=== PATIENT | male | born 1935 | race Caucasian/White ===

== ENCOUNTER 2017-03-20 17:22 | Observation (INO) | payer MEDICARE, OTHER ==
[~2017-03-20] VITALS: Ht 172.7 cm; Wt 75.6 kg
[~2017-03-20 17:22] MED LIST: CALC-6 PO; DOCU-168 PO; DONE10TA30 PO; ESCI5TAB PO; LIDO700A3 TOP; MAGN400O4 PO; MEMA10TA12 PO; MULT-795 PO; NAPR220C11 PO; VERA-8 PO; WARF3TAB27 PO; WARF4TAB33 PO
--- OUTSIDE RECORDS SUMMARY | 2017-03-20 17:31 | XMS REPORT | Referral Summary ---
Author Author [facility] Organization [facility] Address Unknown Phone Unavailable Care Team Providers Care Critical Systems Technician Name Role Phone Janet Stevenson Primary Care Physician [phone] Encounter Date(s): 01/02/17 - 01/02/17 [facility] [address] [id number] Discharge Diagnosis: Presence of permanent cardiac pacemaker Discharge Diagnosis: Severe aortic stenosis Discharge Diagnosis: Atrial fibrillation Discharge Disposition: 01-Home or Self Care Attending Physician: Miladis Fontenot APRN, NP-C Admitting Physician: Miladis Fontenot APRN, NP-C Vital Signs Most recent to 1 oldest [Reference Range]: Peripheral Pulse 84 bpm Rate [60-100 bpm] (01/02/17 1:51 PM) Blood Pressure 110/70 mmHg [90-140/60-90 mmHg] (01/02/17 1:51 PM) Problem List Condition Effective Dates Status Health Status Informant Alzheimer's Active disease(Confirmed) Anticoagulant Active long-term use(Confirmed) Bipolar 1 Active disorder(Confirmed) Cancer, benign lilia Active major salivary gland(Confirmed) Presence of Active permanent cardiac pacemaker(Confirmed) OBS suspected Active cardiovascular disease(Confirmed) CHF (congestive Active heart failure)(Confirmed) Atrial fibrillation Active (disorder)(Confirmed ) Dementia(Confirmed) Active Depression(Confirmed Active ) Dizziness(Confirmed) Active Dyslipidemia(Confirm Active ed) ED (erectile Active dysfunction)(Confirm ed) Elevated Active PSA(Confirmed) Giddiness(Confirmed) Active Hearing Active loss(Confirmed) Hyperlipidemia(Confi Active rmed) Hypertension(Confirm Active ed) Hypothyroidism(Confi Active rmed) Injury of chest Active wall(Confirmed) Irregular heart Active rhythm(Confirmed) Lumbago(Confirmed) Active Memory Active loss(Confirmed) OA Active (osteoarthritis)(Con firmed) Orthostatic Active hypotension(Confirme d) Osteoporosis(Confirm Active ed) Personal history of Resolved prostate cancer(Confirmed) Prostate 01/2007 Active cancer(Confirmed) Sinoatrial node Active dysfunction(Confirme d) Sleep Active apnea(Confirmed) Syncope and Active collapse(Confirmed) Acute Venous Active Embolism; Thrombosis(Confirmed ) right ureteral Active orifice bladder tumor(Confirmed) Type 2 diabetes Active mellitus(Confirmed) Allergies, Adverse Reactions, Alerts No Known Medication Allergies Medications Centrum Silver 1 tabs, Oral, Daily, 0 Refill(s) Start Date: 06/21/14 Status: Ordered donepezil 10 mg oral tablet See Instructions, TAKE TWO TABLETS BY MOUTH EVERY NIGHT AT BEDTIME, # 60 tabs, 1 Refill(s), eRx: [facility] #[id number], TAKE TWO TABLETS BY MOUTH EVERY NIGHT AT BEDTIME Start Date: 09/21/14 Status: Ordered levothyroxine 25 mcg, Oral, Daily, 0 Refill(s) Start Date: 06/21/14 Status: Ordered Lipitor 20 mg oral tablet 1 tabs, Oral, Bedtime (once a day), 0 Refill(s) Start Date: 07/20/14 Status: Ordered Namenda 10 mg oral tablet 2 tabs, Oral, Daily, # 30 tabs, 0 Refill(s) Start Date: 06/21/14 Status: Ordered Oyst-Abiodun-D 1 tabs, Oral, Daily, 0 Refill(s) Start Date: 07/20/14 Status: Ordered verapamil 180 mg/12 hours oral tablet, extended release See Instructions, TAKE ONE TABLET BY MOUTH EVERY DAY, # 90 unknown unit, 2 Refill(s), eRx: [facility] #[id number], TAKE ONE TABLET BY MOUTH EVERY DAY Start Date: 06/02/14 Status: Ordered warfarin 3 mg oral tablet See Instructions, TAKE ONE TABLET BY MOUTH EVERY DAY, # 30 tabs, eRx: [facility] #[id number], TAKE ONE TABLET BY MOUTH EVERY DAY Start Date: 11/22/14 Status: Ordered Results No data available for this section Immunizations Given and Recorded Vaccine Date Status Refusal Reason pneumococcal 23-polyvalent vaccine 07/07/03 Recorded tetanus-diphth toxoids (Td) adult/adol 07/07/03 Given Procedures Procedure Date Related Diagnosis Body Site Colonoscopy1 03/12/11 RT MF Tendon Sheath Decompression 3/29/11 Colonoscopy 2007 Pacemaker care 2007 Cystoscopy and transrectal prostate needle bx 12/30/06 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 Repeat in 3 years. Social History Social History Type Response Smoking Status Never smoker Assessment and Plan Extracted from: Title: Office Visit Note Author: Miladis Fontenot APRN, FELLER OPERATOR-C Date: 01/02/17 Assessment/Plan 1.Severe aortic stenosis They still wish to proceed with conservative management and will consider consult to valve clinic Signs/symptoms of ASdiscussed and likely cause of hisgradual functional decline and to report any changes Avoid dehydration 2.Atrial fibrillation Chronic Warfarin, rate controlled 3.Presence of permanent cardiac pacemaker Stable device check, no changes F/U with Dr. Hernandez 8 months Referrals to Other Providers Referred by: Miladis Fontenot APRN, FELLER OPERATOR-C
--- OUTSIDE RECORDS SUMMARY | 2017-03-20 17:31 | XMS REPORT | Continuity of Care Document ---
Author Author [facility] Organization [facility] Address Unknown Phone Unavailable Allergies Active Description Code Type Severity Reaction Onset Reported/Identified Relationship to Patient Clinical Status Yes No Known Medication Allergies NKMA N/A N/A 07/20/2014 Medications Medication Packaging Start Date Stop Date Route Dosage Sig LIDOCAINE 1% MPF INJ (5ML) VL 01/05/2016 01/04/2017 ID ASDIR methylPREDNISolone ACETATE 80MG/1ML INJ VL 01/05/20162016 IT ASDIR fentaNYL 100 MCG/2ML INJ AMP 01/05/2016 01/04/2017 IV ASDIR BUPIVACAINE 0.25% INJ [10 ML] VL 01/05/2016 01/04/2017 IT ASDIR LACTATED RINGERS 1000 ML IV SOLN BAG 09/11/2016 09/11/2016 IV PRE-OP MIDAZOLAM 2MG/2ML INJ VL 09/11/2016 09/11/2016 IV PRE-OP fentaNYL 100 MCG/2ML INJ AMP 09/11/2016 09/11/2016 IV PRE-OP ceFAZolin 1GM VIAL VL 09/11/2016 09/11/2016 IV PRE-OP SODIUM CHLORIDE PF 0.9% 10ML INJ VL 09/11/2016 09/11/2016 IVP ONCE LACTATED RINGERS 1000 ML IV SOLN BAG 09/11/2016 09/11/2016 IV ONCE SODIUM CHLORIDE 0.9% 1000ML IRRIG SOLN EA 09/11/20162015 IRR ONCE ceFAZolin 1GM VIAL VL 09/11/2016 09/11/2016 IVP ONCE BUPIVACAINE W/ EPI 0.25% INJ [10 ML] VL 09/11/2016 09/11/2016 ID ONCE SODIUM CHLORIDE 0.9% 10ML FLUSH SYRINGE SYR 09/11/20162016 IVP BID&0900,2100 LIDOCAINE 5% PATCH PAT 09/11/2016 09/11/2017 TD Q12H&0900, 2100 POLYETHYLENE GLYCOL 17GM PKT PKT 09/11/2016 09/11/2017 PO QD& 0900 DOCUSATE SODIUM 100MG CAPSULE CAP 09/11/2016 09/11/2017 PO BID& 0900,2100 * Ready to Reconcile EA 09/11/2016 09/11/2016 PO ASDIR fentaNYL 250 MCG/5ML INJ AMP 09/11/2016 09/11/2016 IV ONCE LIDOCAINE 2% SYRINGE [100MG/5ML] SYR 09/11/2016 09/11/2016 IVP ONCE DEXAMETHASONE 10MG/1ML VIAL VL 09/11/2016 09/11/2016 IVP ONCE PROPOFOL 200MG/20ML INJ VL 09/11/2016 09/11/2016 IVP ONCE ONDANSETRON 4MG/2ML INJ VL 09/11/2016 09/11/2016 IVP ONCE ROCURONIUM 50MG/5ML INJ VL 09/11/2016 09/11/2016 IVP ONCE PHENYLEPHRINE 1MG/10ML SYRINGE [COMPOUND] DOS 09/11/201609/11 IVP ONCE MORPHINE 4MG/1ML SYRINGE ML 09/11/2016 09/11/2017 IVP [id number] SODIUM CHLORIDE 0.9% W/ KCL 20MEQ 1000ML IV SOLN BAG 09/11/2016 09/11/2017 IV 100ML/HR LORazepam 0.5MG TABLET TAB 09/11/2016 09/11/2017 PO Q4HPRN FAMOTIDINE 20 MG TABLET TAB 09/11/2016 09/11/2017 PO BIDPRNN CYCLOBENZAPRINE 10 MG TABLET TAB 09/11/2016 09/11/2017 PO [id number] PHENOL 1.4% THROAT SPRAY [118ML] EA 09/11/2016 09/11/2017 PO PRN MAGNESIUM HYDROXIDE 2400MG/30ML SUSP EA 09/11/2016 09/11/2017 PO PRN MORPHINE 2 MG/1ML SYRINGE ML 09/11/2016 09/11/2017 IVP [id number] MORPHINE 4MG/1ML SYRINGE ML 09/11/2016 09/11/2017 IVP [id number] BISACODYL 10MG SUPPOS. SUP 09/11/2016 09/11/2017 AL* PRN TEMAZEPAM 15MG CAPSULE CAP 09/11/2016 09/11/2017 PO HSPRNI& 2200 diphenhydrAMINE 50MG/1ML INJ VL 09/11/2016 09/11/2017 IVP Q6HPRN BISACODYL 5MG TABLET TAB 09/11/2016 09/11/2017 PO PRN ACETAMINOPHEN 325MG TABLET TAB 09/11/2016 09/11/2017 PO Q4HPRN METOCLOPRAMIDE 10MG/2ML INJ VL 09/11/2016 09/11/2017 IVP [id number] SODIUM CHLORIDE 0.9% 10ML FLUSH SYRINGE SYR 09/11/20162016 IVP PRN SODIUM CHLORIDE 0.9% 5ML FLUSH SYRINGE SYR 09/11/20162016 IVP PRN CEPACOL (BENZOCAINE/MENTHOL) JAQUIZENZENON SAMANTHA 09/11/2016 09/11/2017 BC Q4HPRN ePHEDrine 20MG/2ML SYRINGE (COMPOUNDED) DOS 09/11/20162015 IVP ONCE ePHEDrine 20MG/2ML SYRINGE (COMPOUNDED) DOS 09/11/20162015 IVP ONCE ACETAMINOPHEN IV 1GM/100ML VL 09/11/2016 09/12/2016 PB Q6H&0000 ,0600,1200,1800 *VERAPAMIL ER 120MG TABLET 09/11/2016 09/11/2017 PO QD&0900 *DONEPEZIL 10 MG TABLET TAB 09/11/2016 09/11/2017 PO HS&2200 *MEMANTINE 10MG TABLET TAB 09/11/2016 09/11/2017 PO QD&0900 *LEVOTHYROXINE 50MCG TABLET TAB 09/11/2016 09/11/2017 PO QD& 0900 *ESCITALOPRAM 10MG TABLET TAB 09/11/2016 09/11/2017 PO PRN ceFAZolin 1GM VIAL VL 09/11/2016 09/12/2016 IVP Q8H&1800,0200, 1000 METOCLOPRAMIDE 10MG TABLET TAB 09/11/2016 09/12/2016 PO Q6H3& 0300,0900,1500,2100 ceFAZolin 1GM VIAL VL 09/11/2016 09/11/2016 IVP Q8H&0000,0800, 1600 traMADol 50 MG TABLET TAB 09/11/2016 09/11/2016 PO Q4-6HPRN traMADol 50 MG TABLET TAB 09/11/2016 09/11/2017 PO Q4-6HPRNP METOCLOPRAMIDE 10MG TABLET TAB 09/12/2016 09/12/2017 PO [id number] *MEMANTINE 20MG TABLET 10/06/2016 10/06/2017 PO QD&0900 *LEVOTHYROXINE 50MCG TABLET TAB 10/06/2016 09/11/2016 PO QD& 0900 *ESCITALOPRAM 5MG TABLET 10/06/2016 10/06/2017 PO PRN *WARFARIN 3MG TABLET TAB 10/06/2016 10/06/2017 PO QPM&1700 *DONEPEZIL 10 MG TABLET TAB 10/06/2016 09/11/2016 PO HS&2200 *WARFARIN 4MG TABLET TAB 10/06/2016 10/06/2017 PO QPM&1700 * DONT RECONCILE--CHANGE PENDING EA 10/06/2016 10/06/2017 PO PRN *VERAPAMIL ER 120MG TABLET 10/12/2016 09/11/2016 PO QD&0900 *MEMANTINE 10MG TABLET TAB 10/12/2016 09/11/2016 PO QD&0900 *ESCITALOPRAM 10MG TABLET TAB 10/12/2016 09/11/2016 PO PRN Problems Date Dx Coded Attending Type Code Diagnosis Diagnosed By 01/05/2016 CHEYENNE RIBEIRO DF 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 01/05/2016 CHEYENNE RIBEIRO DF Z7901 senior living (current) use 09/12/2016 BURAK DAWSON E03.9 Hypothyroidism, unspecified 09/12/2016 BURAK DAWSON DF F03.90 Unspecified dementia without behavioral 09/12/2016 BURAK DAWSON DF F41.8 Other specified anxiety disorders 09/12/2016 BURAK DAWSON G47.30 Sleep apnea, unspecified 09/12/2016 BURAK DAWSON I10 Essential (primary) hypertension 09/12/2016 BURAK DAWSON M48.06 Spinal stenosis, lumbar region 09/12/2016 BURAK DAWSON M51.36 Other intervertebral disc degeneration, 09/12/2016 BURAK DAWSON M51.86 Other intervertebral disc disorders, lum 09/12/2016 BURAK DAWSON DF Z79.01 senior living (current) use of anticoagulant 09/12/2016 BURAK DAWSON DF Z95.0 Presence of cardiac pacemaker Procedures Code Description Performed By Performed On [id number] Release Lumbar Nerve, Open Approach BURAK DAWSON 09/11/2016 [id number] Excision of Lumbar Vertebral Disc, BURAK Ortiz 09/11/2016 Results Test Result Range Hemoglobin [Mass/volume] in Blood - 09/12/16 04:35 Hemoglobin [Mass/volume] in Blood 14.0 g/dl 13.5 - 17.0 Hematocrit [Volume Fraction] of Blood by Automated count - 09/12/16 04:35 Hematocrit [Volume Fraction] of Blood by Automated count 38.7 % 40.0 - 51.0 Comprehensive metabolic 2000 panel - Serum or Plasma - 09/12/16 04:35 Glucose [Mass/volume] in Serum or Plasma 133 mg/dl 64 - 112 Urea nitrogen [Mass/volume] in Serum or Plasma 16.1 mg/dl 8.4 - 25.8 Creatinine [Mass/volume] in Serum or Plasma 1.0 mg/dl 0.7 - 1.2 Urea/Creatinine [Mass Ratio] in Serum or Plasma 16.1 6 - 26 Calcium [Mass/volume] in Serum or Plasma 8.60 mg/dl 8.30 - 10.60 Sodium [Moles/volume] in Serum or Plasma 136 mmol/L 135 - 151 Potassium [Moles/volume] in Serum or Plasma 4.7 mmol/L 3.5 - 5.0 Chloride [Moles/volume] in Serum or Plasma 103 mmol/L 98 - 113 Protein [Mass/volume] in Serum or Plasma 5.6 gm/dl 6.2 - 8.0 Albumin [Mass/volume] in Serum or Plasma 3.7 gm/dl 3.5 - 5.2 Globulin [Mass/volume] in Serum 1.9 gm/dl 2-4 Albumin/Globulin [Mass Ratio] in Serum or Plasma 1.9 1.1-2.4 Alanine aminotransferase [Enzymatic activity/volume] in Serum or Plasma 21 U/L 0 - 55 Alkaline phosphatase [Enzymatic activity/volume] in Serum or Plasma 70 U/L 53 - 128 Bilirubin.total [Mass/volume] in Serum or Plasma 0.74 mg/dl 0.10 - 1.20 Carbon dioxide, total [Moles/volume] in Venous blood 23 mmol /L 23 - 34 Magnesium [Mass/volume] in Serum or Plasma - 09/12/16 04:35 Magnesium [Mass/volume] in Serum or Plasma 1.8 mg/dl 1.8 - 2.6 Encounters ACCT No. Visit Date/Time Discharge Status Pt. Type Provider Facility Loc./Unit Complaint [id number] 01/19/2014 14:07:00 01/19/2014 23 :59:59 [facility] Outpatient [id number] 11/03/2013 15:53:00 11/03/2013 23 :59:59 [facility] Outpatient
--- OUTSIDE RECORDS SUMMARY | 2017-03-20 17:31 | XMS REPORT | Continuity of Care Document ---
Author Author [facility] Organization [facility] Address Unknown Phone Unavailable Support Name Relationship Address Phone SREEKANTH BRADLEY MD Caregiver [address] [place] [address] Unavailable SREEKANTH BRADLEY MD Caregiver [address] [place] [address] Unavailable ANALILIA PASTOR DO Caregiver [address] [place] [address] Unavailable MICHELLE BARTLETT Next Of Kin [address] [place] [address] Insurance Providers Guarantor Keisha Bartlett Address [address] [place] [address] Email DENIED NO TO PT [facility] Policy Number [id number] Subscriber's Name Keisha Bartlett Relationship 18 Self Group Number PLANC Effective Date 00 Payer Medicare Policy Number [id number] Subscriber's Name Keisha Bartlett Relationship 18 Self Advance Directives Directive Response Recorded Date/Time Ordered Resuscitation Status Full Code 09/19/16 4:26pm Resuscitation Documents on File No 09/18/16 4:37pm DPOA for Healthcare Only Y Michelle Elvin () 09/19/16 2:12am Living Will Yes 09/18/16 4:37pm Problems Active Problems Medical Problem Onset Date Status Altered mental status, unspecified Unknown Acute Alzheimer's dementia Unknown Chronic Anticoagulation adequate with anticoagulant therapy Unknown Chronic At high risk for falls Unknown Acute Atrial fibrillation Unknown Chronic Constipation due to opioid therapy Unknown Acute Depression Unknown Chronic Hypoxemia Unknown Acute Intractable back pain Unknown Acute Neurogenic bladder Unknown Spinal stenosis of lumbar region Unknown Chronic Systolic murmur of aorta Unknown Acute Urinary retention Unknown Acute weakness Unknown Acute Surgical Problem Onset Date Status S/P laminectomy Unknown Acute Status post biventricular pacemaker Unknown Chronic Medications Current Home Medications Medication Dose Units Route Directions Days Qty Instructions Start Date Calcium Carbonate/Vitamin D3 (Os-Abiodun 500+D Tablet) 1 Tab Tablet 1 Tab Oral Daily 03/31/10 Docusate Sodium (Colace) 100 Mg Capsule 100 Mg Oral Daily 14 Days 14 Capsule 09/18/16 Donepezil Hcl 10 Mg Tablet 10 Mg Oral Bedtime 09/20/15 Escitalopram Oxalate (Lexapro) 5 Mg Tablet 5 Mg Oral Daily as needed for Prn Orders 09/20/15 Lidocaine (Lidoderm) 1 Each Adh..patch 2 Patch Topically Daily 14 Days 09/18/16 Magnesium Hydroxide (Milk Of Magnesia) 400 Mg/5 Ml Oral.susp 30 Ml Oral Daily as needed for Constipation 21 Days 09/18/16 Memantine Hcl (Namenda) 10 Mg Tablet 20 Mg Oral Daily 09/20/15 Multivitamins W-Minerals/Lut (Centrum Silver Tablet) 1 Tab Tablet 1 Tab Oral Daily 03/31/10 Naproxen Sodium (Aleve) 220 Mg Capsule 220 Mg Oral Daily as needed for Arthritis 30 Days 30 Capsule 09/18/16 Verapamil Hcl (Verapamil Er) 120 Mg Tablet.er 120 Mg Oral Daily 09/13/16 Warfarin Sodium 3 Mg Tablet 3 Mg Oral 5 Times A Week SUN,MON,TUE,ELISEO ,SAT 02/04/13 Warfarin Sodium (Coumadin) 4 Mg Tablet 4 Mg Oral Twice A Week WED, Sat03/30/10 Past Home Medications Medication Directions Ordered Status Acetaminophen (Tylenol 8 Hour) 650 Mg Tablet.sa, 650 Mg Oral As Needed Discontinued Atorvastatin Calcium (Lipitor) 10 Mg Tablet, 20 Mg Oral Daily 03/31/10 Discontinued B 12 , 400 Mcg Daily 12/13/08 Discontinued Calcium Carbonate (Os-Abiodun 500) 1 Tab Tablet, 1 Tab Oral Daily 03/31/10 Discontinued Calcium/Vit B12/Fa/Pyridoxine (Folic Acid/B-6/B-12 Tablet) 1 Tab Tablet, 1 Tab Oral Daily 12/13/08 Discontinued Citalopram Hydrobromide (Celexa) 10 Mg Tablet, 60 Mg Oral Daily 03/12/11 Discontinued Citalopram Hydrobromide (Citalopram) 10 Mg/5 Ml Solution, 10 Mg Oral Daily Discontinued Donepezil Hcl (Aricept) 10 Mg Tablet, 10 Mg Oral Daily 03/31/10 Discontinued Duloxetine Hcl (Cymbalta) 60 Mg Capsule.dr, 60 Mg Oral Daily 03/31/10 Discontinued Flecainide Acetate 50 Mg Tablet, 50 Mg Oral Twice A Day 03/09/11 Discontinued Guaifenesin (Mucinex) 600 Mg Tablet.sa, 600 Mg Oral As Needed 03/31/10 Discontinued Lovenox , Injection Daily 03/31/10 Discontinued Memantine Hcl (Namenda) 10 Mg Tablet, 20 Mg Oral Daily 03/31/10 Discontinued Montelukast Sodium (Singulair) 10 Mg Tablet, 10 Mg Oral Bedtime 11/02/10 Discontinued Namenda Xl , 28 Mg Oral Daily 12/08/13 Discontinued Naproxen Sodium (Aleve) 220 Mg Capsule, 220 Mg Oral Daily as needed for Pain/ Air Hunger 09/21/15 Discontinued Tolterodine Tartrate (Detrol) 2 Mg Tablet, 4 Mg Oral Weekly 03/31/10 Discontinued Verapamil Hcl 180 Mg Tablet.sa, 180 Mg Oral Daily 03/31/10 Discontinued Social History Social History Problem Response Recorded Date/Time Onset Date Status Reason for Hospitalization Lumbar laminectormy, weakness 09/27/2016 10:39am Not Applicable Not Applicable Hx Substance Use No 09/13/2016 11:22am Not Applicable Not Applicable Hx Alcohol Use Y OCC 09/13/2016 11:22am Not Applicable Not Applicable Has the pt used tobacco in the last 12 months No 09/18/2016 4:41pm Not Applicable Not Applicable Query Response Start Date Stop Date Smoking Status Never smoker Hospital Discharge Instructions Instructions: Care Instructions: Reason for Hospitalization: Lumbar laminectormy, weakness I was in the hospital because (patient own words): "I fell and couldn't get up. " Discharge Diet: Regular Discharge Activity: as tolerated Follow Up Appointments: Dr. Anastacio Pastor on 10/08/16 at 1:45 pm for Hosp. follow-up. [address] [place], [place] [address] . Pending Lab / Results: No Pending Lab Wound/Incision Care: dry dressing as needed Pain Management/Treatment: Lidocaine patch, tylenol prn Expected Signs/Symptoms: Pain, swelling at surgical site Notify Physician If: fever, severely worsening pain During Business Hours:: Please call the physician's office at office After Business Hours:: Please call [phone] and have the sticker machine operator page the physician. Condition at time of discharge: Good Plan of Care Discharge Date 09/27/16 3:20pm Disposition 30 STILL A PATIENT Instructions/Education Provided Spinal Stenosis Prescriptions See Medication Section Care Plan and Goals See Discharge Instructions Section Functional Status Query Response Date Recorded Mobility Status Ambulatory w/assist September 27, 2016 10:39am Assistive Devices Front Wheeled Walker September 27, 2016 10:39am Activity Limitations Weakness Pain September 27, 2016 10:39am Feeding Ability Independent September 27, 2016 10:39am Toileting Ability Assist September 27, 2016 10:39am Grooming Ability Assist September 27, 2016 10:39am Dressing Ability Assist September 27, 2016 10:39am Driving Ability Dependent September 27, 2016 10:39am Housework Ability Dependent September 27, 2016 10:39am Meal Preparation Ability Dependent September 27, 2016 10:39am Stair Climbing Ability Dependent September 27, 2016 10:39am Ability to complete ADL's impeded by Impaired Mobility September 27, 2016 10:39am Cognitive/Perceptual Impairments Impaired vision Impaired hearing September 27, 2016 10:39am Visual Assistive Devices Glasses With patient September 24, 2016 4:22pm Hearing Assistive Devices Right hearing aid With patient September 24, 2016 4:22pm Preferred Method of Learning Demonstration Listening Hands on September 24, 2016 4:22pm Allergies, Adverse Reactions, Alerts Allergen Type Severity Reaction Status Last Updated No Known Drug Allergies Allergy Unknown Active 09/21/15 Immunizations Immunization Event Date Type Not Given Reason Dose Number Lot Number Cloth Layer VIS Given Influenza, high dose seasonal 09/14/16 Administered 1 [id number] San[employer]i Pasteur 09/14/16 Query Response on File Recorded Date/Time Hx Influenza Vaccination Y January 2016 09/18/16 4:41pm Hx Pneumococcal Vaccination No 09/18/16 4:41pm Hx Influenza Vaccination Y January 2016 09/18/16 4:41pm Influenza Vaccine Hx January 2016 09/18/16 4:50pm Vital Signs Acute Vital Signs Vital Response Date/Time Temperature (Fahrenheit) 96.6 deg F (96.8 - 99.1) 09/27/2016 7:30am Temperature (Calculated Celsius) 35.96050 degrees C (36.0 - 37.3) 09/27/2016 7:30am Pulse Rate (adult) 85 bpm (60 - 100) 09/27/2016 9:48am Respiratory Rate 18 breaths/min (10 - 20) 09/27/2016 9:48am O2 Sat by Pulse Oximetry 94 % (90 - 100) 09/27/2016 7:30am Oxygen Delivery Method Nasal Cannula 09/14/2016 6:51pm Oxygen Delivery Method Room Air 09/27/2016 7:30am Oxygen Flow Rate 1.00 L/min 09/14/2016 6:51pm Blood Pressure 143/98 mm Hg 09/27/2016 7:30am Blood Pressure Source Automatic Cuff 09/27/2016 7:30am Height (Feet) 5 feet 09/26/2016 1:46pm Height (Inches) 8.00 inches 09/26/2016 1:46pm Weight (Kilograms) 84.000 kg 09/18/2016 4:35pm Body Mass Index (BMI) 28.2 09/18/2016 4:35pm Results Laboratory Results Test Name Result Units Flags Reference Collection Date/Time Result Date/ Time Comments Activated Partial Thromboplast Time 37.0 SEC H 24-36 08/28/2016 12:22pm 08/28/2016 12:37pm Neutrophils % (Manual) 70.0 % H 33-66 09/13/2016 12:44pm 09/13/2016 1: 14pm Band Neutrophils % 4.0 % 0-6 09/13/2016 12:44pm 09/13/2016 1:14pm Lymphocytes % (Manual) 13.0 % L 23-45 09/13/2016 12:44pm 09/13/2016 1: 14pm Monocytes % (Manual) 12.0 % H 0-9.0 09/13/2016 12:44pm 09/13/2016 1: 14pm Eosinophils % (Manual) 1.0 % 0-4 09/13/2016 12:44pm 09/13/2016 1:14pm Band Neutrophils # 0.6 T/MM3 09/13/2016 12:44pm 09/13/2016 1:14pm Absolute Neutrophils (Manual) 10.7 T/MM3 H 1.8-7.7 09/13/2016 12:44pm 1:14pm Lymphocytes # (Manual) 2.0 T/MM3 1-4.8 09/13/2016 12:44pm 09/13/2016 1: 14pm Monocytes # (Manual) 1.8 T/MM3 H 0-0.8 09/13/2016 12:44pm 09/13/2016 1: 14pm Eosinophils # (Manual) 0.2 T/MM3 0-0.5 09/13/2016 12:44pm 09/13/2016 1: 14pm Red Cell Morphology Comment ABNORMAL 09/13/2016 12:44pm 09/13/2016 1:14pm Anisocytosis 1+ 09/13/2016 12:44pm 09/13/2016 1:14pm Poikilocytosis 1+ 09/13/2016 12:44pm 09/13/2016 1:14pm Total Bilirubin 1.30 MG/DL 0.20-1.30 09/15/2016 4:40am 09/15/2016 5: 32am Alkaline Phosphatase 66 U/L 38-126 09/15/2016 4:40am 09/15/2016 5:32am Total Protein 5.7 G/DL L 6.3-8.2 09/15/2016 4:40am 09/15/2016 5:32am Albumin 3.2 G/DL L 3.5-5.0 09/15/2016 4:40am 09/15/2016 5:32am Globulin 2.5 G/DL 2.4-3.6 09/15/2016 4:40am 09/15/2016 5:32am Albumin/Globulin Ratio 1.3 RATIO 1.1-2.2 09/15/2016 4:40am 09/15/2016 5 :32am Aspartate Amino Transf (AST/SGOT) 27 U/L 17-59 09/15/2016 4:40am 2015 5:32am Alanine Aminotransferase (ALT/SGPT) 28 U/L 21-72 09/15/2016 4:40am 5:32am Magnesium Level 2.1 MG/DL 1.6-2.3 09/15/2016 4:40am 09/15/2016 5:32am Urinalysis Comment MICROSCOPIC NOT IND. 09/13/2016 5:14pm 2015 6:05pm White Blood Count 8.3 T/MM3 4.5-11.0 09/19/2016 7:14am 09/19/2016 7: 26am Red Blood Count 3.57 M/MM3 L 4.50-5.90 09/19/2016 7:14am 09/19/2016 7: 26am Hemoglobin 12.2 GM/DL D L 13.5-17.5 09/19/2016 7:14am 09/19/2016 7:26am Hematocrit 35.2 % D L 41-53 09/19/2016 7:14am 09/19/2016 7:26am Mean Corpuscular Volume 98.6 UM3 80-100 09/19/2016 7:14am 09/19/2016 7: 26am Mean Corpuscular Hemoglobin 34.2 UUG H 26-34 09/19/2016 7:14am 2015 7:26am Mean Corpuscular Hemoglobin Concent 34.7 GM/DL 31-37 09/19/2016 7:14am 09/19/2016 7:26am RDW Standard Deviation 52.1 FL H 36.9-50.2 09/19/2016 7:14am 09/19/2016 7:26am Platelet Count 153 T/MM3 130-400 09/19/2016 7:14am 09/19/2016 7:26am Mean Platelet Volume 10.5 UM3 9.4-12.4 09/19/2016 7:14am 09/19/2016 7: 26am Neutrophils (%) (Auto) 73.1 % H 33-66 09/19/2016 7:14am 09/19/2016 7: 26am Lymphocytes (%) (Auto) 11.4 % L 23-45 09/19/2016 7:14am 09/19/2016 7: 26am Monocytes (%) (Auto) 12.5 % H 0-9.0 09/19/2016 7:14am 09/19/2016 7:26am Eosinophils (%) (Auto) 1.4 % 0-4 09/19/2016 7:14am 09/19/2016 7:26am Basophils (%) (Auto) 0.4 % 0-2 09/19/2016 7:14am 09/19/2016 7:26am Immature Granulocyte % (Auto) 1.2 % H 0.0-0.5 09/19/2016 7:14am 2015 7:26am Absolute Neutrophils (auto) 6.1 T/MM3 1.8-7.7 09/19/2016 7:14am 2015 7:26am Absolute Lymphocytes (auto) 1.0 T/MM3 1-4.8 09/19/2016 7:14am 2015 7:26am Absolute Monocytes (auto) 1.0 T/MM3 H 0-0.8 09/19/2016 7:14am 2015 7:26am Absolute Eosinophils (auto) 0.1 T/MM3 0-0.5 09/19/2016 7:14am 2015 7:26am Absolute Basophils (auto) 0.0 T/MM3 0-0.2 09/19/2016 7:14am 09/19/2016 7:26am Absolute Immature Granulocyte (auto 0.10 T/MM3 H 0.00-0.03 09/19/2016 7: 14am 09/19/2016 7:26am Prothromb Time International Ratio 2.12 H 0.99-1.21 09/27/2016 4:39am 09/27/2016 5:04am THERAPUTIC RANGE=2.00-3.00 FOR ANTI-THROMBOSIS THERAPUTIC RANGE=2.50-3.50 FOR IMPLANTED VALVE Icterus Index < 2 0-7 09/19/2016 7:14am 09/19/2016 7:30am Chemistry Specimen Hemolysis < 15 0-25 09/19/2016 7:14am 09/19/2016 7 :30am 0-25: Specimen Exhibited No Hemolysis. Turbidity < 20 0-20 09/19/2016 7:14am 09/19/2016 7:30am Sodium Level 141 MEQ/L 134-144 09/19/2016 7:14am 09/19/2016 7:30am Potassium Level 4.1 MEQ/L 3.6-5 09/19/2016 7:14am 09/19/2016 7:30am Chloride Level 107 MEQ/L 98-107 09/19/2016 7:14am 09/19/2016 7:30am Carbon Dioxide Level 25 MEQ/L 22-30 09/19/2016 7:14am 09/19/2016 7: 30am Anion Gap 9 MEQ/L 5-15 09/19/2016 7:14am 09/19/2016 7:30am Blood Urea Nitrogen 9.0 MG/DL 9-09/19/2016 7:14am 09/19/2016 7:30am Creatinine 0.7 MG/DL L 0.8-1.5 09/19/2016 7:14am 09/19/2016 7:30am BUN/Creatinine Ratio 13 RATIO 6-26 09/19/2016 7:14am 09/19/2016 7:30am Glomerular Filtration Rate Calc 108 09/19/2016 7:14am 09/19/2016 7: 30am Glucose Level 77 MG/DL 75-110 09/19/2016 7:14am 09/19/2016 7:30am Calculated Osmolality 269 MOSM/KG 261-280 09/19/2016 7:14am 09/19/2016 7:30am Calcium Level 9.0 MG/DL 8.4-10.2 09/19/2016 7:14am 09/19/2016 7:30am Urine Collection Type VOIDED-NOT CC-MIDSTR 09/22/2016 6:46pm 2015 6:54pm Urine Color YELLOW YELLOW 09/22/2016 6:46pm 09/22/2016 6:54pm Urine Turbidity SL CLOUDY CLEAR 09/22/2016 6:46pm 09/22/2016 6:54pm Urine Specific [place] 1.020 1.015-1.025 09/22/2016 6:46pm 2015 6:54pm Urine pH 7.5 5.0-8.0 09/22/2016 6:46pm 09/22/2016 6:54pm Urine Leukocyte Esterase NEGATIVE NEGATIVE 09/22/2016 6:46pm 2015 6:54pm Urine Nitrite NEGATIVE NEGATIVE 09/22/2016 6:46pm 09/22/2016 6:54pm Urine Protein NEGATIVE NEGATIVE 09/22/2016 6:46pm 09/22/2016 6:54pm Urine Glucose (UA) NEGATIVE NEGATIVE 09/22/2016 6:46pm 09/22/2016 6: 54pm Urine Ketones NEGATIVE NEGATIVE 09/22/2016 6:46pm 09/22/2016 6:54pm Urine Urobilinogen 1.0 EU/DL NORMAL 09/22/2016 6:46pm 09/22/2016 6: 54pm Urine Bilirubin NEGATIVE NEGATIVE 09/22/2016 6:46pm 09/22/2016 6: 54pm Urine Blood 3+ A NEGATIVE 09/22/2016 6:46pm 09/22/2016 6:54pm Urine WBC 1-3 /HPF 0-5 09/22/2016 6:46pm 09/22/2016 7:07pm Urine RBC 0-1 /HPF 0-3 09/22/2016 6:46pm 09/22/2016 7:07pm Urine Bacteria TRACE H NEGATIVE 09/22/2016 6:46pm 09/22/2016 7:07pm Urine Culture Indicated CULT NOT INDICATED 09/22/2016 6:46pm 2015 7:07pm Procedures Procedure Status Date Provider(s) CHEST X-RAY 2VW FRONTAL&LATL Completed 08/28/16 COMPREHEN METABOLIC PANEL Completed 08/28/16 URINALYSIS AUTO W/SCOPE Completed 08/28/16 COMPLETE CBC W/AUTO DIFF WBC Completed 08/28/16 PROTHROMBIN TIME Completed 08/28/16 THROMBOPLASTIN TIME PARTIAL Completed 08/28/16 Encounters Encounter Location Arrival/Admit Date Discharge/Depart Date Attending Provider Discharged Inpatient [facility] 09/18/16 2:45pm 09/27/16 3:20pm SREEKANTH BRADLEY MD Discharged Inpatient [facility] 09/14/16 2:53pm 09/18/16 2:48pm ANALILIA PASTOR DO Registered Clinic [facility] 08/28/16 11:27am ANALILIA PASTOR DO
--- OUTSIDE RECORDS SUMMARY | 2017-03-20 17:31 | XMS REPORT | Referral Summary ---
Author Author [facility] Organization [facility] Address Unknown Phone Unavailable Care Team Providers Care Senior Patient Account Representative Name Role Phone Janet Stevenson Primary Care Physician [phone] Encounter VC Date(s): 09/05/16 - 09/05/16 [facility] [address] [place] [id number] Discharge Disposition: 01-Home or Self Care Attending Physician: Cheikh Levine MD Admitting Physician: Cheikh Levine MD Referring Physician: Jay Hernandez MD Vital Signs Most recent to 1 oldest [Reference Range]: Apical Heart Rate 82 bpm [60-100 bpm] (09/05/16 2:42 PM) Blood Pressure 141/93 mmHg [90-140/60-90 mmHg] *HI* (09/05/16 2:42 PM) Problem List Condition Effective Dates Status [...] BEDTIME, # 60 tabs, 1 Refill(s), eRx: [facility] #[id number], TAKE TWO TABLETS BY MOUTH EVERY NIGHT [...] # 90 unknown unit, 2 Refill(s), eRx: [facility] #[id number], TAKE ONE TABLET BY MOUTH EVERY DAY Start Date: 06/02/14 Status: Ordered warfarin 3 mg oral tablet See Instructions, TAKE ONE TABLET BY MOUTH EVERY DAY, # 30 tabs, eRx: [facility] #[id number], TAKE ONE TABLET BY MOUTH EVERY DAY Start Date: 11/22/14 Status: Ordered Results No data available for this section Immunizations Vaccine Date Refusal Reason pneumococcal 23-polyvalent vaccine 07/07/03 tetanus-diphth toxoids (Td) adult/adol 07/07/03 Procedures Procedure Date Related Diagnosis Body Site Colonoscopy1 03/12/11 RT MF Tendon Sheath Decompression 02/27/11 Colonoscopy 2007 Pacemaker care 2007 Cystoscopy and transrectal prostate needle bx 12/30/06 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 Repeat in 3 years. Social History Social History Type Response Smoking Status Never smoker Assessment and Plan No data available for this section
--- OUTSIDE RECORDS SUMMARY | 2017-03-20 17:31 | XMS REPORT | Referral Summary ---
Author Author [facility] Organization [facility] Address Unknown Phone Unavailable Care Team Providers Care Pelota Maker Name Role Phone Janet Stevenson Primary Care Physician [phone] Encounter VC Date(s): 09/05/16 - 09/05/16 [facility] [address] [address] [[email or web address] Discharge Disposition: 01-Home or Self Care Attending Physician: Cheikh Levine MD Admitting Physician: Cheikh Levine MD Referring Physician: Cheikh Levine MD Vital Signs No data available for this section Problem List Condition Effective Dates Status Health [...] BEDTIME, # 60 tabs, 1 Refill(s), eRx: [facility] #[id number], TAKE TWO TABLETS BY MOUTH EVERY NIGHT [...] # 90 unknown unit, 2 Refill(s), eRx: [facility] #[id number], TAKE ONE TABLET BY MOUTH EVERY DAY Start Date: 06/02/14 Status: Ordered warfarin 3 mg oral tablet See Instructions, TAKE ONE TABLET BY MOUTH EVERY DAY, # 30 tabs, eRx: [facility] #[id number], TAKE ONE TABLET BY MOUTH EVERY DAY [...]
[2017-03-20] MEDS ORDERED: NORMAL SALINE 1,000 ML IV ONE (17:32)
--- OUTSIDE RECORDS SUMMARY | 2017-03-20 17:32 | XMS REPORT | Referral Summary ---
Author Author [facility] Organization [facility] Address Unknown Phone Unavailable Care Team Providers Care Oxyacetylene Cutter Name Role Phone Janet Stevenson Primary Care Physician [phone] Encounter VC Date(s): 09/05/16 - 09/05/16 [facility] [address] [id number] Discharge Disposition: 01-Home or Self Care Attending Physician: Jay Hernandez MD Admitting Physician: Jay Hernandez MD Vital Signs No data available for [...] BEDTIME, # 60 tabs, 1 Refill(s), eRx: [facility] #[id number], TAKE TWO TABLETS BY MOUTH EVERY NIGHT [...] # 90 unknown unit, 2 Refill(s), eRx: [facility] #[id number], TAKE ONE TABLET BY MOUTH EVERY DAY Start Date: 06/02/14 Status: Ordered warfarin 3 mg oral tablet See Instructions, TAKE ONE TABLET BY MOUTH EVERY DAY, # 30 tabs, eRx: [facility] #[id number], TAKE ONE TABLET BY MOUTH EVERY DAY [...]
[2017-03-20 17:43] LABS: HGB - HEMOGLOBIN 17.4 GM/DL (13.5-17.5); MEAN CORPUSCULAR HGB 33.1 UUG (26-34); MEAN CORPUSCULAR HGB CONC(MCHC 34.1 GM/DL (31-37); RED BLOOD COUNT 5.26 M/MM3 (4.50-5.90); WBC - WHITE BLOOD COUNT 10.5 T/MM3 (4.5-11.0)
[2017-03-20 17:49] LABS: INR 1.77 (0.76-1.04); PROTHROMBIN TIME 19.3 SEC (9.31-12.49); PTT 38.1 SEC (24-36)
[2017-03-20] MEDS ORDERED: LEVO50TA11 PO (17:50)
--- OUTSIDE RECORDS SUMMARY | 2017-03-20 17:50 | XMS REPORT | Continuity of Care Document ---
Author Author [facility] Organization [facility] Address Unknown Phone Unavailable Allergies Active Description [...] MORPHINE 4MG/1ML SYRINGE ML 09/11/2016 09/11/2017 IVP [id number] SODIUM CHLORIDE 0.9% W/ KCL 20MEQ 1000ML IV SOLN BAG 09/11/2016 09/11/2017 IV 100ML/HR LORazepam 0.5MG TABLET TAB 09/11/2016 09/11/2017 PO Q4HPRN FAMOTIDINE 20 MG TABLET TAB 09/11/2016 09/11/2017 PO BIDPRNN CYCLOBENZAPRINE 10 MG TABLET TAB 09/11/2016 09/11/2017 PO [id number] PHENOL 1.4% THROAT SPRAY [118ML] EA 09/11/2016 09/11/2017 PO PRN MAGNESIUM HYDROXIDE 2400MG/30ML SUSP EA 09/11/2016 09/11/2017 PO PRN MORPHINE 2 MG/1ML SYRINGE ML 09/11/2016 09/11/2017 IVP [id number] MORPHINE 4MG/1ML SYRINGE ML 09/11/2016 09/11/2017 IVP [id number] BISACODYL 10MG SUPPOS. SUP 09/11/2016 09/11/2017 MO* PRN TEMAZEPAM 15MG CAPSULE CAP 09/11/2016 09/11/2017 PO HSPRNI& 2200 diphenhydrAMINE 50MG/1ML INJ VL 09/11/2016 09/11/2017 IVP Q6HPRN BISACODYL 5MG TABLET TAB 09/11/2016 09/11/2017 PO PRN ACETAMINOPHEN 325MG TABLET TAB 09/11/2016 09/11/2017 PO Q4HPRN METOCLOPRAMIDE 10MG/2ML INJ VL 09/11/2016 09/11/2017 IVP [id number] SODIUM CHLORIDE 0.9% 10ML FLUSH SYRINGE SYR [...] METOCLOPRAMIDE 10MG TABLET TAB 09/12/2016 09/12/2017 PO [id number] *MEMANTINE 20MG TABLET 10/06/2016 10/06/2017 PO [id number]&0900 [...] disc diso 01/05/2016 CHEYENNE RIBEIRO DF Z7901 skilled nursing (current) use 09/12/2016 BURAK DAWSON E03.9 Hypothyroidism, [...] disorders, lum 09/12/2016 BURAK DAWSON DF Z79.01 skilled nursing (current) use of anticoagulant 09/12/2016 BURAK DAWSON DF Z95.0 Presence of cardiac pacemaker Procedures Code Description Performed By Performed On [id number] Release Lumbar Nerve, Open Approach BURAK DAWSON 09/11/2016 [id number] Excision of Lumbar Vertebral Disc, BURAK Ortiz [...] Status Pt. Type Provider Facility Loc./Unit Complaint [id number] 01/19/2014 14:07:00 01/19/2014 23 :59:59 [facility] Outpatient [id number] 11/03/2013 15:53:00 11/03/2013 23 :59:59 [facility] Outpatient
[2017-03-20 17:52] LABS: ALBUMIN 4.4 G/DL (3.5-5.0); ALBUMIN/GLOBULIN RATIO 1.6 RATIO (1.1-2.2); ALKALINE PHOSPHATASE 96 U/L (38-126); ALT (SGPT) 24 U/L (21-72); ANION GAP 14 MEQ/L (5-15); AST (SGOT) 27 U/L (17-59); BUN/CREATININE RATIO 12 RATIO (6-26); CALCIUM 9.8 MG/DL (8.4-10.2); CHLORIDE 106 MEQ/L (98-107); CO2 - CARBON DIOXIDE 25 MEQ/L (22-30); CREATININE 1.1 MG/DL (0.8-1.5); GLOMERULAR FILTRATION RATE 64; GLUCOSE 108 MG/DL (75-110); POTASSIUM 3.8 MEQ/L (3.6-5); SODIUM 145 MEQ/L (134-144); TOTAL PROTEIN 7.2 G/DL (6.3-8.2)
[2017-03-20] MEDS ORDERED: NAPR-1119 PO (17:52)
[2017-03-20 18:01] LABS: BAND NEUTROPHILS # 0.8 T/MM3; LYMPHOCYTES # (MANUAL) 3.5 T/MM3 (1-4.8); NEUTROPHILS #(MANUAL)-ABSOLUTE 6.2 T/MM3 (1.8-7.7); TOTAL CELLS COUNTED 100 %
--- NOTE | 2017-03-20 18:25 | NUR ---
PHYSICIAN DR BRADLEY SPEAKS WITH PT AND
--- NOTE | 2017-03-20 18:35 | NUR ---
STATUS PT ABLE TO TOUCH NOSE WITH HIS L HAND, CUPOLA MAN IS SIGNIFICANTLY STRONGER, PT'S SLURRED SPEECH IS BETTER COMPARED TO ADMIT. PT CONT TO LOOK TO THE RIGHT SIDE OF THE BED.
--- NOTE | 2017-03-20 19:11 | NUR ---
STATUS PT CONT TO IMPROVE AND DR BRADLEY ADVISES THAT THE ALTEPLASE IS NOT WARRANTED AT THIS TIME
--- NOTE | 2017-03-20 19:19 | NUR ---
STATUS DR BRADLEY IN ROOM WITH PT AND FAMILY
--- NOTE | 2017-03-20 19:52 | NUR ---
MACKENZIE STUBBS RN ASSIGNS ROOM 139 WITH GUSTAVO LEWIS
--- NOTE | 2017-03-20 19:57 | ERPDOC ---
Departure Disposition Decision Date: Mar 20, 2017 Disposition Decision Time: 20:07 Disposition: 02 TO [facility] Impression Impression Impression: Primary Impression: CVA (cerebral vascular accident) Additional Impressions: Left-sided weakness Expressive aphasia Severity: Severe Condition: Improved Seen By: Physician only Referrals: ANALILIA PASTOR DO (Family) Problems/Meds/Labs Reviewed?: Yes Medications reviewed and manag: Yes Follow up care ordered?: Yes Mental Status: Alert, Oriented HPI - CVA/Neuro General Chief Complaint: Neuro Symptoms/Deficits Stated Complaint: STROKE Time Seen by Provider: 17:32 HPI - CVA/NEURO Initial Comments 82-year-old patient presents to ED with sudden onset left-sided weakness. Patient was at home bathing. His had been with him, left to get a towel. She return to the bathroom to find him lying on the tile floor, unable to move left side of his body. Patient was unable to communicate at the time, did not initially respond. EMS was contacted and he was brought in to the ED. This was at 1630 p.m. Patient had a back surgery in September with complication including atrial fibrillation. He was placed on Coumadin is admitted for inpatient rehabilitation. He improved dramatically, was discharged home and has done well until today. It is uncertain whether he fell and then had a stroke or stroked and then fell. Immediately on arrival, stroke protocol was activated. Patient was sent to CT, labs were ordered and the neurologist on-call was paged. Allergies: Coded Allergies: No Known Drug Allergies (Verified Allergy, Unknown, 03/20/17) Past History Unable to Obtain PMH Due to: clinical condition Patient Surgical History Ventricular Pacemaker placement, status/post laminectomy of the lumbar spine Past Medical History Metabolic: hypertension, hypothyroidism ENMT: sleep apnea Cardiac: A-fib, other Male: BPH Psychological: dementia Surgical History General: back, colonoscopy, hernia, other Cardiac: pacemaker Vaccines Hx Influenza Vaccination: Yes (January 2016) Hx Pneumococcal Vaccination: No Social History Does patient use chewing tobac: No Substance Use Type: does not use Alcohol Intake: none Marital Status: Sexuality: female partner Housing: house Household Members: spouse Service: Yes Current Occupational Status: retired Review of Systems Unable to Obtain ROS Due to: clinical condition Physical Exam General General Nourishment: well nourished, well developed, appears stated age Distress Description Initially patient is unable to answer questions, he is alert, has total left sided neglect during exam and questioning. General Body Habitus: well groomed Vitals and Pain First Documented Vital Signs Date Time Temp Pulse Resp B/P Pulse Ox O2 Delivery O2 Flow Rate FiO2 03/20/17 17:27 98.0 86 20 133/88 97 Room Air 03/20/17 17:37 2.00 Weight: Kilograms: 84.900 Height (feet): 5 Height (inches): 7.00 Triage Pain Scale: Normal Exams: Head: Normocephalic w/o trauma Eyes: Pupils are PERRLA w/ EOMI, No scleral icterus, irritation, or foreign bodies noted Fundi: Disks flat and sharp, No hemorrhages, or AV nicking noted Chest/Resp: Clear all olmstead, with good airflow, and symmetry bilaterally CV: Regular rate and rhythm (irregularity of atrial fibrillation was not appreciated), without murmur or gallop, Pulses 2+ all extremities, capillary refill, <2 seconds all ext., no pedal edema noted Abdomen: Bowel sounds positive, soft, non-tender, non-distended, no hepatosplenomegaly, masses or bruits noted Neurologic (brief) Comments Patient has left sided facial weakness, tongue deviates to the left on exam. When spoken to patient would only look to the right, did not seem to notice anyone on the left side of his body. 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 Left leg had slight motion with toes. Differential Diagnoses Considering: Thrombotic CVA, Hemorrhagic CVA, DKA, Drug Overdose, Encephalitis , Hypertensive Emergency, Hysteria, Meningitis, Neuropathy, Psychogenic, TIA Progress Results/Orders Orders Procedure Category Date Status Time Oxygen Administration EDM 03/20/17 Transmitted 17:32 Iv Lock (Ed Only) EDM 03/20/17 Transmitted 17:32 Bgm (Ed) EDM 03/20/17 Transmitted 17:32 Nothing By Mouth (Ed EDM 03/20/17 Transmitted Only) 17:32 Cbc W/Auto LAB 03/20/17 Complete Diff-Reflex Manual 17:32 Cmp - Comprehensive LAB 03/20/17 Complete Metabolic 17:32 Troponin I W LAB 03/20/17 Complete Hemolysis Index 17:32 INR LAB 03/20/17 Complete 17:32 PTT LAB 03/20/17 Complete 17:32 EKG EKG 03/20/17 Taken 17:32 Ct Head W/O Contrast CT 03/20/17 Taken 17:32 Nih Stroke Scale MAURICIO 03/20/17 In Process 17:32 Normal Saline (Normal PHA 03/20/17 In Process Saline Iv) 17:32 Elevate Hob MAURICIO 03/20/17 In Process 17:32 Measure Vital Signs MAURICIO 03/20/17 In Process 17:32 Lab Results Laboratory Tests Test 03/20/17 17:25 03/20/17 17:32 White Blood Count 10.5T/MM3 Red Blood Count 5.26M/MM3 Hemoglobin 17.4GM/DL Hematocrit 51.0% Mean Corpuscular Volume 97.0UM3 Mean Corpuscular Hemoglobin 33.1UUG Mean Corpuscular Hemoglobin Concent 34.1GM/DL RDW Standard Deviation 59.3FL Platelet Count 185T/MM3 Mean Platelet Volume 11.0UM3 Immature Granulocyte % (Auto) % Neutrophils (%) (Auto) % Lymphocytes (%) (Auto) % Monocytes (%) (Auto) % Eosinophils (%) (Auto) % Basophils (%) (Auto) % Absolute Immature Granulocyte (auto T/MM3 Absolute Neutrophils (auto) T/MM3 Absolute Lymphocytes (auto) T/MM3 Absolute Monocytes (auto) T/MM3 Absolute Eosinophils (auto) T/MM3 Absolute Basophils (auto) T/MM3 Neutrophils % (Manual) 59.0% Band Neutrophils % 8.0% Lymphocytes % (Manual) 33.0% Absolute Neutrophils (Manual) 6.2T/MM3 Band Neutrophils # 0.8T/MM3 Lymphocytes # (Manual) 3.5T/MM3 Red Cell Morphology Comment Normal Prothromb Time International Ratio 1.77 Activated Partial Thromboplast Time 38.1SEC Turbidity 20 Sodium Level 145MEQ/L Potassium Level 3.8MEQ/L Chloride Level 106MEQ/L Carbon Dioxide Level 25MEQ/L Anion Gap 14MEQ/L Blood Urea Nitrogen 13.0MG/DL Creatinine 1.1MG/DL Glomerular Filtration Rate Calc 64 BUN/Creatinine Ratio 12RATIO Glucose Level 108MG/DL Calculated Osmolality 280MOSM/KG Calcium Level 9.8MG/DL Total Bilirubin 1.20MG/DL Icterus Index < 2 Aspartate Amino Transf (AST/SGOT) 27U/L Alanine Aminotransferase (ALT/SGPT) 24U/L Alkaline Phosphatase 96U/L Troponin I < 0.012ng/ml Total Protein 7.2G/DL Albumin 4.4G/DL Globulin 2.8G/DL Albumin/Globulin Ratio 1.6RATIO Chemistry Specimen Hemolysis < 15 Glucometer 102mg/dL Medications Current ED Medications Sodium Chloride (Normal Saline IV) 1,000 ml @ 250 mls/hr Q4H ONCE IV ; Start at 17:32; Stop 03/20/17 at 21:31 Progress Progress Patient was immediately sent to CT, labs ordered and neurology paged. Patient was 1 hour outside of his initial event. I was unable to work up communication with the neurologist on-call. In the patient's interest I then consulted neurology at [facility]. Dr. Cardozo was incredibly helpful and helped me work to solution. We reviewed the CT scan, which showed neither hemorrhage nor embolus. And reviewed other labs including the INR. I discussed options and explanations with the patient's and with the patient himself. During the time that elapsed, the patient continued to improve. At this point we were a little over 2 hours from initial event and his decided to wait to see if he continued to improve and reevaluate in 30 minutes. We did this and he continued to have significant improvement over that 30 minutes. Ultimately as we approach the 3 hour frankie, the patient, his , his daughter who is a PA, his physician and I already agreement that it was appropriate to hold off due to limited risk in light of the dramatic improvement that was happening. Patient was actually able to lift his left arm off the table, had good livestock trucker strength. In fact in order to show how strong his strength was, he pulled me over onto the table with his left arm. He continued to have some difficulty with expression in that he had some slurring. He also had some continued weakness left eyelid and lips on the left side. Tongue deviation to the left improved, was still present but definitely less than initially. Dr. Pastor is admitting the patient and will observe him overnight. SREEKANTH BRADLEY MD Mar 20, 2017 19:57
--- NOTE | 2017-03-20 19:59 | NUR ---
ADMIT ENOC RN ASSIGNS NEW ROOM AND NURSE OTHER ROOM WAS NOT CLEAN AT THIS TIME
--- NOTE | 2017-03-20 20:10 | NUR ---
REPORT GIVEN TO KEMAL LEWIS. KEMAL REPORTS THAT THE ROOM IS NOT CLEAN AT THIS TIME AND STATES THAT THEY WOULD CALL WHEN READY FOR PT
--- OUTSIDE RECORDS SUMMARY | 2017-03-20 20:13 | XMS REPORT | Continuity of Care Document ---
Author Author [facility] Organization [facility] Address Unknown Phone Unavailable Allergies Active Description [...] MORPHINE 4MG/1ML SYRINGE ML 09/11/2016 09/11/2017 IVP [id number] SODIUM CHLORIDE 0.9% W/ KCL 20MEQ 1000ML IV SOLN BAG 09/11/2016 09/11/2017 IV 100ML/HR LORazepam 0.5MG TABLET TAB 09/11/2016 09/11/2017 PO Q4HPRN FAMOTIDINE 20 MG TABLET TAB 09/11/2016 09/11/2017 PO BIDPRNN CYCLOBENZAPRINE 10 MG TABLET TAB 09/11/2016 09/11/2017 PO [id number] PHENOL 1.4% THROAT SPRAY [118ML] EA 09/11/2016 09/11/2017 PO PRN MAGNESIUM HYDROXIDE 2400MG/30ML SUSP EA 09/11/2016 09/11/2017 PO PRN MORPHINE 2 MG/1ML SYRINGE ML 09/11/2016 09/11/2017 IVP [id number] MORPHINE 4MG/1ML SYRINGE ML 09/11/2016 09/11/2017 IVP [id number] BISACODYL 10MG SUPPOS. SUP 09/11/2016 09/11/2017 MI* PRN TEMAZEPAM 15MG CAPSULE CAP 09/11/2016 09/11/2017 PO HSPRNI& 2200 diphenhydrAMINE 50MG/1ML INJ VL 09/11/2016 09/11/2017 IVP Q6HPRN BISACODYL 5MG TABLET TAB 09/11/2016 09/11/2017 PO PRN ACETAMINOPHEN 325MG TABLET TAB 09/11/2016 09/11/2017 PO Q4HPRN METOCLOPRAMIDE 10MG/2ML INJ VL 09/11/2016 09/11/2017 IVP [id number] SODIUM CHLORIDE 0.9% 10ML FLUSH SYRINGE SYR [...] METOCLOPRAMIDE 10MG TABLET TAB 09/12/2016 09/12/2017 PO [id number] *MEMANTINE 20MG TABLET 10/06/2016 10/06/2017 PO QD&0900 [...] disc diso 01/05/2016 CHEYENNE RIBEIRO DF Z7901 FPC (current) use 09/12/2016 BURAK DAWSON E03.9 Hypothyroidism, [...] disorders, lum 09/12/2016 BURAK DAWSON DF Z79.01 FPC (current) use of anticoagulant 09/12/2016 BURAK DAWSON DF Z95.0 Presence of cardiac pacemaker Procedures Code Description Performed By Performed On 31PI2MT Release Lumbar Nerve, Open Approach BURAK DAWSON 09/11/2016 [id number] Excision of Lumbar Vertebral Disc, BURAK Ortiz [...] Status Pt. Type Provider Facility Loc./Unit Complaint [id number] 01/19/2014 14:07:00 01/19/2014 23 :59:59 [facility] Outpatient [id number] 11/03/2013 15:53:00 11/03/2013 23 :59:59 [facility] Outpatient
[2017-03-20 21:18] VITALS: Ht 172.7 cm; Wt 75.6 kg
[2017-03-20 21:19] VITALS: BP 142/73; PULSE 87; RESP 20; TEMP 96.2; O2SAT 96
--- NOTE | 2017-03-20 22:20 | NUR ---
Admit Pt brought to room 164 via W/C from ER at 210. One person assist to bed. Pt is A/O x3. Assessments as noted. Declines needs, neuro checks per order, equal hand grasps and no facial drooping at this time. Alarms in place, monitoring.
[2017-03-21] VITALS: BP 128/82; PULSE 65; RESP 20; TEMP 97.5; O2SAT 96
[2017-03-21] MEDS ORDERED: NAPROXEN 220 MG TABLET PO PRN (01:15)
[2017-03-21 02:32] VITALS: PULSE 67
[2017-03-21 04:00] VITALS: O2SAT 98
[2017-03-21] MEDS ORDERED: LEVOTHYROXINE 50 MCG TABLET PO SCH (06:30)
[2017-03-21 06:33] VITALS: BP 120/78; PULSE 79; RESP 16; TEMP 97.4; O2SAT 97
[2017-03-21 07:51] VITALS: BP 131/87; PULSE 77; RESP 18; TEMP 97.4; O2SAT 94
--- NOTE | 2017-03-21 08:17 | DI ---
Indication: ITS.REASON: left-sided weakness PROCEDURE: CT HEAD W/O CONTRAST: Encounter: Initial Comparison: December 08, 2013 Technique: Axial CT images through the head were performed without contrast. Iterative Reconstruction dose reducing technique was utilized. FINDINGS: Mild generalized atrophy. There is a new area of ill-defined low-attenuation in the right frontoparietal region seen on axial image #35 measuring 1.4 cm in diameter. The ventricles are of normal size, shape, and contour for the patient's age. There are multiple areas of low attenuation in the white matter which most likely represent changes from chronic microvascular ischemia. The brainstem, cerebellum, and cerebral hemispheres otherwise have a normal morphology and CT attenuation. There is no evidence of midline displacement. No hemorrhage is evident. The visualized portions of the skull base, midface, and calvarium demonstrate no abnormality. The paranasal sinuses are well aerated and free of significant disease. The tympanic and mastoid cavities appear normal. IMPRESSION: No acute intracranial hemorrhage. Small area of new lower attenuation in the right frontoparietal junction region could represent an area of acute or subacute ischemia. Further evaluation with MRI may be helpful. There is a preliminary report by [facility]. The preliminary report does not mention the area of possible ischemia. .
[2017-03-21] MEDS ORDERED: ASPIRIN 81 MG CHEWABLE TABLET PO SCH (09:00)
[2017-03-21] MEDS ORDERED: CALCIUM PO SCH (09:00)
[2017-03-21] MEDS ORDERED: VERAPAMIL SR 120 MG TABLET PO SCH (09:00)
[2017-03-21] MEDS ORDERED: [UNRECOGNIZED DRUG - OTHER] PO SCH (09:00)
--- NOTE | 2017-03-21 11:41 | NUR ---
MARNI GRIDER VISITED PT. CM EXPLAINED ROLE AND PROVIDED CONTACT INFORMATION. PT PLANS TO RETURN HOME POST HOSPITAL STAY. PT DOES NOT WANT HOME HEALTH SERVICES. CM SPOKE WITH PT SPOUSE AND SHE IS IN AGREEMENT WITH D/C PLAN. PT/SPOUSE ARE AWARE TO CONTACT CM IF NEEDS [facility].
[2017-03-21] MEDS ORDERED: WARFARIN 3 MG TABLET PO SCH (12:00)
[2017-03-21 12:09] VITALS: BP 123/79; PULSE 61; RESP 18; TEMP 97.9; O2SAT 97
--- NOTE | 2017-03-21 13:22 | STEVAL ---
Dysphagia Evaluation Evaluation Location: Chair Evaluation Angle: 90 Oral Peripheral Exam-facial: Facial Symmetry: Minimal Impairment (minimal left sided weakness at rest) Tongue Elevation: No Impairment (WFL) Tongue Lateralization: No Impairment (WFL) Tongue Protrusion: No Impairment (WFL) Tongue Retraction: No Impairment (WFL) Tongue Extension Midline: No Impairment (WFL) Labial Approximation: No Impairment (WFL) Intraoral Air Pressure: No Impairment (WFL) Volitional Cough: No Impairment (WFL) Palatal Elevation: No Impairment (WFL) Larynx Elevation During Swallo: No Impairment (WFL) Saliva Control: No Impairment (WFL) Dentition: Natural Lip Seal: Adequate-liquid (coffee, cranberry juice), Adequate-pudding (oatmeal , mandarin oranges ), Adequate-solid (joy cracker) Lingual Manipulation: Adequate-liquid, Adequate-pudding, Adequate-solid Chewing: Adequate-pudding, Adequate-solid Oral cavity clear post swallow: Adequate-liquid, Adequate-pudding, Adequate- solid Swallow initiated w/o delay: Adequate-liquid, Adequate-pudding, Adequate-solid Multiple swallows not needed: Adequate-liquid, Adequate-pudding, Adequate-solid Voice clear&dry post swallow: Adequate-liquid, Adequate-pudding, Adequate-solid No cough/throat clear: Adequate-liquid, Adequate-pudding, Adequate-solid Assessment/Plan of Care Speech Therapy Impressions: An oral mechanism exam was completed prior to assessment. Patient presents with natural teeth. Minimal left sided weakness was observed only at rest. Labial and lingual movement deemed within functional limits. Patient presents with a quiet vocal quality; however there was no impairment with palatal elevation. A dysphagia evaluation was completed next. Breakfast consisted of oatmeal, thin coffee, thin cranberry juice, mandarin oranges, and a joy cracker. Patient alternated between solids and liquids and took small sips/bites. Labial closure was adequate and lingual manipulation was fair with all trials and consistencies. Laryngeal elevation was present during assessment. Patient demonstrated a clear oral cavity post swallow and did not require any prompts for a secondary swallow. No clinical s/s of aspiration were observed during this assessment. Recommendation of a regular diet with thin liquids. No other concerns were noted which indicate no further therapy at this time. ST Treatment Plan: Evaluation Only ST Treatment Plan Frequency: N/A Treatment Plan Duration: N/A Recommended Diet: Recommended Diet: Regular Thin Liquids Date of Visit 03/21/17 Time Visit Began: 10:05 Time Visit Ended: 10:15 ST Assess/Plan of Care: ST Treatment Charge: Swallow Eval Minutes of Individual Therapy: 10 GCODE Swallowing: G8996 - current Severity Modifier: CI - 1-19% Swallowing: G8997 - goal Severity Modifier: CI - 1-19% Swallowing: G8998 - d/c Severity Modifier: CI - 1-19% THOMAS GARCIA Mar 21, 2017 11:38
--- NOTE | 2017-03-21 13:23 | STEVAL ---
Eval Subjective and History Date/Time of Eval DATE: 03/21/17 TIME: 11:17 Medical Diagnosis Stroke Treatment Order: Assessment Orientations: x 3, Alert, Cooperative Date of Onset of Primary Com: Speech Therapy Evaluation Completed 03/21 Significant Past Medical Hx: Hypertension, hypothyroidism, sleep apnea, A-fib, BPH, Dementia Medical History Form Reviewed: Yes Residence Type: Private home/apartment Lives With: Spouse ( ) Current Functional Status: Transferred to [facility] due to [place], left-sided weakness Person(s) Educated: Patient Instruction Understanding Demo: Pt. verbalizes understand Education Comment IRB COMPLIANCE COORDINATOR educated patient on reasoning for evaluation. Patient was agreeable to evaluation. Subjective and History Comment: Upon arrival, patient was in a pleasant mood. Patient was cooperative. No left-sided weakness was observed. Patient verbalized in complete and fluent sentences during conversation. Patient agreed to having graduate clinician, Thomas, provide therapy while being supervised by IRB COMPLIANCE COORDINATOR Freida. Cognition Point to single items: object Answer yes/no questions: Yes Follow simple commands: Yes Follow complex commands: Yes Understands conversation: Yes (Due to patient being [place], clinician increased her loudness while speaking ) Expression Assessment Method: Verbal Expression Abilities: Social speech, Formulates Sentences, Complex Conversation % Words Intelligible: 100 % Sentence Intelligible: 100 % Conversation Intelligible: 100 Written Communication: Sentences Voice Quality: Within Functional Limits Repeats series number: Yes Repeats series word: Yes Repeats sentence: Yes Oriented to place: Yes Oriented to time: Yes Oriented to daily events: Yes Oriented to remote events: Yes Recalled personal inform: Yes Recalled meal: Yes Recalled general inform: Yes Writes/sign name: Yes Copies shapes: Yes Copies numbers: Yes Writes object names: Yes Writes object functions: Yes Left Neglect: No Right Neglect: No Social Interaction: Interacts fam/staff/visit ALPS Test Results: Patient was given the Aphasia Language Performance Scales assessment. Results are as follows: Listenin/10 Talkin/10 Readin/10 Writin/10 Patient presents [place], clinician adjusted loudness level during conversation so patient heard the correct instructions. Assessment/Plan of Care Speech Therapy Impressions: Upon arrival, patient was pleasant and cooperative with the clinicians. Patient presented with minimal left sided weakness while at rest. Results of the ALPS indicate an insignificant impairment level. No concerns were observed. The following are the scores of the assessment: Listenin/10 Talkin/10 Readin/10 Writin/10 ST Treatment Plan: Evaluation Only ST Treatment Plan Frequency: N/A Treatment Plan Duration: N/A Plan of Care Comment Speech Therapy evaluation was completed. Due to results, no further therapy is needed at this time. Date of Visit 03/21/17 Time Visit Began: 10:15 Time Visit Ended: 11:05 ST Assess/Plan of Care: ST Treatment Charge: Speech Eval Minutes of Individual Therapy: 50 GCODE Spoken Language Comprehension: G9159 - current Severity Modifier: CI - 1-19% Spoken Language Comprehension: G9160 - goal Severity Modifier: CI - 1-19% Spoken Language Comprehension: G9161 - d/c Severity Modifier: CI - 1-19% THOMAS GARCIA Mar 21, 2017 11:21
[2017-03-21] MEDS ORDERED: ASPI-914 PO (13:43)
--- NOTE | 2017-03-21 14:50 | NUR ---
STATUS/DISMISSAL PT ALERT AND ORIENTED X3. NO WEAKNESS NOTED. RA. DENIED PAIN. STEADY GAIT. DISCHARGE INSTRUCTIONS GIVEN TO PT AND . 3 IV LOCK D/C. TELEMETRY D/C. HE LEFT UNIT PER WHEELCHAIR. ID BAND WAS REMOVED.
[2017-03-21] MEDS ORDERED: DONEPEZIL 10 MG TABLET PO SCH (22:00)
[2017-03-21] MEDS ORDERED: MEMANTINE 10 MG TABLET PO SCH (22:00)
[2017-03-22] MEDS ORDERED: WARFARIN 4 MG TABLET PO SCH (12:00)
== END 2017-03-21 14:50 | disposition home or self-care (01) ==
LOC: ED 17:22 → EDHOLD 19:42 → MED 21:02
PROVIDERS: ADMIT Internal Medicine; ATTEND Internal Medicine
DX: R53.1 Weakness (principal); R47.01 Aphasia; Z79.01 Long term (current) use of anticoagulants; I10 Essential (primary) hypertension; E03.9 Hypothyroidism, unspecified; G47.30 Sleep apnea, unspecified; I48.91 Unspecified atrial fibrillation; N40.0 Benign prostatic hyperplasia without lower urinary tract symptoms; F03.90 Unspecified dementia, unspecified severity, without behavioral disturbance, psychotic disturbance, mood disturbance, and anxiety; Z95.0 Presence of cardiac pacemaker
CPT/HCPCS: 36415; 70450; 80053; 82948; 84484; 85025; 85610; 85730; 92523; 92610; 93005; 97161; 97166; 99284; A9270; G0378; G8978; G8980; G8987; G8988; G8989; 99218